=== PATIENT | female | born 1960 | race Two or more races ===

== ENCOUNTER 2017-08-23 12:48 | Emergency (ER) | payer OTHER ==
[~2017-08-23] VITALS: Ht 157.5 cm; Wt 56.7 kg
[~2017-08-23 12:48] MED LIST: CENTRUM TABLET1 TAB; CLONAZEPAM0.5 MG; COZAAR50 MG; DIOVAN40 MG; IBUPROFEN800 MG; LISINOPRIL20 MG; LOSARTAN POTASS50 MG; NITROGLYCERIN0.4 MG; NORVASC10 MG; PLAVIX75 MG; PREDNISONE10 MG; TENORMIN25 MG; XANAX XR2 MG; XANAX0.25 MG; [UNRECOGNIZED DRUG - OTHER]
== END 2017-08-23 21:26 | disposition home or self-care (01) ==
LOC: ER 12:48
DX: J45.998 Other asthma (principal)

== ENCOUNTER → 2017-09-20 | Outpatient (CLI) | payer OTHER | END | disposition home or self-care (01) | LOC: NUCLEAR 11:21 | DX: I10 Essential (primary) hypertension (principal) ==

== ENCOUNTER 2017-09-22 13:51 | Outpatient (CLI) | payer OTHER | END 2017-09-22 13:54 | disposition home or self-care (01) | LOC: RAD 13:51 | DX: M50.13 Cervical disc disorder with radiculopathy, cervicothoracic region (principal); M50.121 Cervical disc disorder at C4-C5 level with radiculopathy ==

== ENCOUNTER 2017-12-15 12:52 | Outpatient (CLI) | payer OTHER | END 2017-12-15 12:58 | disposition home or self-care (01) | LOC: SONOGRAMA 12:52 | DX: E07.9 Disorder of thyroid, unspecified (principal) ==

== ENCOUNTER 2018-01-24 14:21 | Outpatient (CLI) | payer OTHER | END 2018-01-24 14:34 | disposition home or self-care (01) | LOC: SONOGRAMA 14:21 | DX: N76.0 Acute vaginitis (principal) ==

== ENCOUNTER 2018-02-14 12:05 | Outpatient (CLI) | payer OTHER | END 2018-02-14 12:24 | disposition home or self-care (01) | LOC: SONOGRAMA 12:05 | DX: I10 Essential (primary) hypertension (principal); I25.10 Atherosclerotic heart disease of native coronary artery without angina pectoris; K74.60 Unspecified cirrhosis of liver; B18.2 Chronic viral hepatitis C ==

== ENCOUNTER 2018-02-20 08:55 | Outpatient (CLI) | payer OTHER | END 2018-02-20 09:07 | disposition home or self-care (01) | LOC: LAB 08:55 | DX: K74.60 Unspecified cirrhosis of liver (principal); B18.2 Chronic viral hepatitis C ==

== ENCOUNTER → 2018-04-27 | Emergency (ER) | payer OTHER ==
[~2018-04-27] VITALS: Ht 157.5 cm; Wt 54.4 kg
== END | disposition home or self-care (01) ==
LOC: ER 11:37 → CPU-OBS 11:40 → ER 11:40
DX: R07.89 Other chest pain (principal)
CPT/HCPCS: 93005; G0378; G0379

== ENCOUNTER → 2018-06-20 | Outpatient (CLI) | payer OTHER | END | disposition home or self-care (01) | LOC: MAMO-SONO 10:45 → SONOGRAMA 11:20 | DX: E03.8 Other specified hypothyroidism (principal); B18.2 Chronic viral hepatitis C ==

== ENCOUNTER 2018-07-31 12:20 | Outpatient (CLI) | payer OTHER | END 2018-08-01 14:44 | disposition home or self-care (01) | LOC: NUCLEAR 12:20 | DX: I10 Essential (primary) hypertension (principal); I73.9 Peripheral vascular disease, unspecified ==

== ENCOUNTER 2018-10-11 14:10 | Emergency (ER) | payer OTHER ==
[~2018-10-11] VITALS: Ht 157.5 cm; Wt 56.7 kg
[2018-10-11] MEDS ORDERED: SYNTHROID50 MCG (14:28)
[2018-10-12] MEDS ORDERED: ORPHENADRINE C100 GM PO (07:06)
== END 2018-10-12 07:40 ==
LOC: ER 14:10
DX: I16.0 Hypertensive urgency (principal); I10 Essential (primary) hypertension; R07.89 Other chest pain; R50.9 Fever, unspecified

== ENCOUNTER → 2019-05-22 | Outpatient (CLI) | payer OTHER ==
[~2019-05-22] MED LIST changes: +ORPHENADRINE C100 GM PO; +SYNTHROID50 MCG
== END | disposition home or self-care (01) ==
LOC: NUCLEAR 07-31 15:00 → SONOGRAMA 11:25
DX: R10.0 Acute abdomen (principal)

== ENCOUNTER 2019-09-25 14:51 | Outpatient (CLI) | payer OTHER | END 2019-09-25 14:58 | disposition home or self-care (01) | LOC: MAMO-SONO 14:51 | DX: Z12.39 Encounter for other screening for malignant neoplasm of breast (principal); N63.10 Unspecified lump in the right breast, unspecified quadrant; N63.20 Unspecified lump in the left breast, unspecified quadrant ==

== ENCOUNTER 2019-10-25 10:37 | Outpatient (CLI) | payer OTHER | END 2019-10-25 10:42 | disposition home or self-care (01) | LOC: TOM 10:37 | DX: R10.10 Upper abdominal pain, unspecified (principal) ==

== ENCOUNTER 2020-08-18 14:51 | Outpatient (CLI) | payer OTHER | END 2020-08-18 15:06 | disposition HB | LOC: RAD 14:51 | PROVIDERS: ATTEND Orthopaedic Surgery | DX: M25.811 Other specified joint disorders, right shoulder (principal); M25.511 Pain in right shoulder; M75.101 Unspecified rotator cuff tear or rupture of right shoulder, not specified as traumatic; M79.601 Pain in right arm; M54.2 Cervicalgia ==

== ENCOUNTER 2020-09-03 13:59 | Outpatient (CLI) | payer OTHER | END 2020-09-03 14:10 | disposition home or self-care (01) | LOC: NUCLEAR 13:59 | PROVIDERS: ATTEND Orthopaedic Surgery | DX: M81.0 Age-related osteoporosis without current pathological fracture (principal) ==

== ENCOUNTER 2020-09-30 15:27 | Outpatient (CLI) | payer OTHER | END 2020-09-30 15:37 | disposition HB | LOC: MAMO-SONO 15:27 | PROVIDERS: ATTEND Surgery | DX: Z12.31 Encounter for screening mammogram for malignant neoplasm of breast (principal); N60.11 Diffuse cystic mastopathy of right breast; N60.12 Diffuse cystic mastopathy of left breast; N64.59 Other signs and symptoms in breast ==

== ENCOUNTER 2020-10-22 14:43 | Outpatient (CLI) | payer OTHER | END 2020-10-22 15:33 | disposition home or self-care (01) | LOC: SONOGRAMA 14:43 | PROVIDERS: ATTEND Orthopaedic Surgery | DX: R10.31 Right lower quadrant pain (principal); R10.32 Left lower quadrant pain ==

== ENCOUNTER 2021-11-13 15:49 | Outpatient (CLI) | payer OTHER | END 2021-11-13 15:56 | disposition home or self-care (01) | LOC: RAD 15:49 | PROVIDERS: ATTEND Physical Medicine & Rehabilitation | DX: M25.511 Pain in right shoulder (principal) ==

== ENCOUNTER 2021-11-19 13:50 | Outpatient (CLI) | payer OTHER | END 2021-11-19 13:57 | disposition home or self-care (01) | LOC: SONOGRAMA 13:50 | PROVIDERS: ATTEND Physical Medicine & Rehabilitation | DX: M25.511 Pain in right shoulder (principal) ==

== ENCOUNTER 2021-11-23 15:04 | Outpatient (CLI) | payer OTHER | END 2021-11-23 15:13 | disposition home or self-care (01) | LOC: MAMO-SONO 15:04 | PROVIDERS: ATTEND Family Medicine | DX: Z12.31 Encounter for screening mammogram for malignant neoplasm of breast (principal) ==

== ENCOUNTER 2021-12-21 16:16 | Emergency (ER) | payer OTHER ==
[~2021-12-21] VITALS: Ht 157.5 cm; Wt 61.2 kg
[2021-12-26] MEDS ORDERED: CLONAZEPAM0.5 MG PO (14:08)
== END 2021-12-21 19:19 | disposition home or self-care (01) ==
LOC: ER 16:16
DX: S00.83XA Contusion of other part of head, initial encounter (principal); X58.XXXA Exposure to other specified factors, initial encounter; Y93.89 Activity, other specified; Y92.89 Other specified places as the place of occurrence of the external cause; Y99.9 Unspecified external cause status; Z88.6 Allergy status to analgesic agent; Z88.0 Allergy status to penicillin; Z72.0 Tobacco use; I10 Essential (primary) hypertension

== ENCOUNTER → 2021-12-26 | Emergency (ER) | payer OTHER ==
[~2021-12-26] VITALS: Ht 157.5 cm; Wt 61.2 kg
[~2021-12-26] MED LIST changes: +CLONAZEPAM0.5 MG PO
== END | disposition home or self-care (01) ==
LOC: ER 13:36
DX: Z53.29 Procedure and treatment not carried out because of patient's decision for other reasons (principal); Z88.6 Allergy status to analgesic agent; Z88.0 Allergy status to penicillin; I10 Essential (primary) hypertension; E03.9 Hypothyroidism, unspecified; S00.12XA Contusion of left eyelid and periocular area, initial encounter

== ENCOUNTER 2022-01-23 17:11 | Emergency (ER) | payer OTHER ==
[~2022-01-23] VITALS: Ht 165.1 cm; Wt 59.0 kg
== END 2022-01-23 22:32 | disposition home or self-care (01) ==
LOC: ER 17:11
DX: K52.9 Noninfective gastroenteritis and colitis, unspecified (principal); E86.0 Dehydration; Z88.0 Allergy status to penicillin; Z88.2 Allergy status to sulfonamides; Z88.6 Allergy status to analgesic agent; I10 Essential (primary) hypertension; I49.9 Cardiac arrhythmia, unspecified; F17.200 Nicotine dependence, unspecified, uncomplicated

== ENCOUNTER → 2022-03-11 | Outpatient (CLI) | payer OTHER | END | disposition home or self-care (01) | LOC: SONOGRAMA 12:51 | PROVIDERS: ATTEND Family Medicine | DX: R10.10 Upper abdominal pain, unspecified (principal) ==

== ENCOUNTER 2022-03-16 11:58 | Outpatient (CLI) | payer OTHER | END 2022-03-16 13:51 | disposition home or self-care (01) | LOC: NUCLEAR 11:58 | PROVIDERS: ATTEND Family Medicine | DX: I25.10 Atherosclerotic heart disease of native coronary artery without angina pectoris (principal); I10 Essential (primary) hypertension ==

== ENCOUNTER 2022-05-28 11:34 | Outpatient (CLI) | payer OTHER | END 2022-05-28 11:38 | disposition home or self-care (01) | LOC: NUCLEAR 11:34 | PROVIDERS: ATTEND Family Medicine | DX: I11.9 Hypertensive heart disease without heart failure (principal); Z88.0 Allergy status to penicillin; Z88.2 Allergy status to sulfonamides; Z88.6 Allergy status to analgesic agent ==

== ENCOUNTER 2022-06-08 12:02 | Emergency (ER) | payer OTHER ==
[~2022-06-08] VITALS: Ht 157.5 cm; Wt 56.7 kg
== END 2022-06-08 16:07 | disposition home or self-care (01) ==
LOC: ER 12:02
DX: M54.89 Other dorsalgia (principal); M25.572 Pain in left ankle and joints of left foot; Z88.0 Allergy status to penicillin; Z88.2 Allergy status to sulfonamides; Z88.6 Allergy status to analgesic agent

== ENCOUNTER 2022-11-30 18:26 | Emergency (ER) | payer OTHER ==
[~2022-11-30] VITALS: Ht 152.4 cm; Wt 61.2 kg
[2022-11-30] MEDS ORDERED: TOPROL XL50 M1 PO (18:41)
[2022-11-30] MEDS ORDERED: PERCOCET 5-3251 EACH PO (23:00)
== END 2022-11-30 23:34 | disposition home or self-care (01) ==
LOC: ER 18:26
DX: M77.31 Calcaneal spur, right foot (principal); E03.9 Hypothyroidism, unspecified; I10 Essential (primary) hypertension; Z87.898 Personal history of other specified conditions; Z88.6 Allergy status to analgesic agent; Z88.0 Allergy status to penicillin

== ENCOUNTER 2023-04-27 13:48 | Outpatient (CLI) | payer OTHER ==
[~2023-04-27 13:48] MED LIST changes: +PERCOCET 5-3251 EACH PO; +TOPROL XL50 M1 PO
== END 2023-04-27 14:20 | disposition home or self-care (01) ==
LOC: MAMO-SONO 13:48
PROVIDERS: ATTEND Family Medicine
DX: Z12.31 Encounter for screening mammogram for malignant neoplasm of breast (principal); N63.0 Unspecified lump in unspecified breast; N60.29 Fibroadenosis of unspecified breast

== ENCOUNTER 2023-05-06 13:43 | Outpatient (CLI) | payer OTHER | END 2023-05-06 13:46 | disposition home or self-care (01) | LOC: NUCLEAR 13:43 | PROVIDERS: ATTEND Family Medicine | DX: Z13.820 Encounter for screening for osteoporosis (principal) ==

== ENCOUNTER 2023-06-09 12:34 | Outpatient (CLI) | payer OTHER | END 2023-06-09 12:36 | disposition home or self-care (01) | LOC: SONOGRAMA 12:34 | PROVIDERS: ATTEND Family Medicine | DX: R10.84 Generalized abdominal pain (principal) ==

== ENCOUNTER → 2024-04-16 | Outpatient (CLI) | payer OTHER | END | disposition home or self-care (01) | LOC: RAD 15:49 | PROVIDERS: ATTEND Family Medicine | DX: M54.17 Radiculopathy, lumbosacral region (principal) ==

== ENCOUNTER 2024-04-27 09:49 | Outpatient (CLI) | payer OTHER | END 2024-04-27 09:53 | disposition home or self-care (01) | LOC: SONOGRAMA 09:49 | PROVIDERS: ATTEND Family Medicine | DX: R10.9 Unspecified abdominal pain (principal) ==

== ENCOUNTER 2024-08-07 10:10 | Outpatient (CLI) | payer OTHER | END 2024-08-07 10:20 | disposition home or self-care (01) | LOC: TOM 10:10 | PROVIDERS: ATTEND Family Medicine | DX: R10.10 Upper abdominal pain, unspecified (principal) ==

== ENCOUNTER 2024-10-17 14:10 | Outpatient (CLI) | payer OTHER | END 2024-10-17 14:16 | disposition home or self-care (01) | LOC: SONOGRAMA 14:10 | PROVIDERS: ATTEND Family Medicine | DX: E03.9 Hypothyroidism, unspecified (principal); E04.2 Nontoxic multinodular goiter ==

== ENCOUNTER 2025-07-02 14:18 | Outpatient (CLI) | payer OTHER | END 2025-07-02 14:28 | disposition home or self-care (01) | LOC: MAMO-SONO 14:18 | PROVIDERS: ATTEND Family Medicine | DX: R10.10 Upper abdominal pain, unspecified (principal); Z12.31 Encounter for screening mammogram for malignant neoplasm of breast ==

== ENCOUNTER 2025-07-30 15:32 | Inpatient (IN) | payer OTHER ==
[~2025-07-30] VITALS: Ht 157.5 cm; Wt 68.0 kg
--- NOTE | 2025-07-30 15:46 | NUR ---
SE RECIBE PTE ALERTA Y ORIENTADA X3 EN AMBULANCIA REFIRIENDO VENIR POR RETENCION DE LIQUIDOS. REFIERE SER PTE DE DR RONAK BRUNER. SE MIDEN S/V Y SE UBICA EN PAULINA CON BARANDAS ELEVADAS Y NIVEL MAS BAJO DE LA MISMA,
[2025-07-30] MEDS ORDERED: PANTOPRAZOLE SODIUM 40 MG/VIAL VIAL IV ONE (16:15)
[2025-07-30] MEDS ORDERED: ONDANSETRON HCL 4 MG in 0.9 % SODIUM CHLORIDE 50 ML IV ONE (16:15)
[2025-07-30] MEDS ORDERED: 0.9 % SODIUM CHLORIDE 1,000 ML IV ONE (16:15)
[2025-07-30] MEDS ORDERED: ONDANSETRON HCL 2 MG/ML VIAL ONE (17:35)
[2025-07-30 18:15] LABS: BASO % 0.5 % (0.1-1.2); EOS # 0.08 (0.04-0.54); EOS % 2.2 % (0.7-7.0); LYMPH # 2.05 (1.18-3.74); LYMPH % 55.6 % (19.3-53.1); MEAN PLATELET VOLUME 12.40 fl (9.4-12.4); MONO # 0.54 (0.24-0.82); NEUT # 1.00 (1.56-6.13); NEUT % 27.1 % (34.0-71.1); RED CELL DISTRIBUTION WIDTH 18.5 % (11.6-14.4)
[2025-07-30 18:44] LABS: ALT/SGPT 51.0 U/L (12-78); AST/SGOT 93.0 U/L (15-37); BILIRUBIN TOTAL 0.72 mg/dL (0.3-1.2); BUN CREA RATIO 15.0 (7.0-25.0); CREATININE SERUM 0.62 mg/dL (0.55-1.02); GFR 97.22; GLOBULINA 5.0 G/DL (2.4-3.5); GLUCOSE FASTING 89.0 mg/dL (65-100); INR 1.33; OSMOLALITY SERUM 283.0 MOSM/KG (275-295)
--- NOTE | 2025-07-30 19:06 | NUR ---
PACIETNE ORIENTADA POR ALENA GALVAN SOBRE [place] MEDICO ORDENADO EL CUAL INDICA ENTENDER. SE COLECTAN MUESTRAS DE LABORATORIOS Y SE CANALIZA PACIENTE BAJO MEDIDAS ASEPTICAS. SE ENTREGA U/A/ SE ADMINISTRA MEDICAMENTO NATALIYA ORDEN MEDICA. PACIENTE PENDIENTE A CT.
[2025-07-30 20:03] LABS: MONO % 14.6 % (4.7-12.5)
[2025-07-30 20:05] LABS: LYMPHOCYTE MAN 44.0 %; NEUTROPHILS MAN 32.0 %
[2025-07-30 20:06] LABS: EOSINOPHIL MAN 2.0 %; MONOCYTE MAN 17.0 %
[2025-07-30 20:15] LABS: URINE BILIRRUBIN Negative (NEGATIVE); URINE BLOOD Trace; URINE COLOR Yellow; URINE GLUCOSE Negative (NEGATIVE); URINE KETONE Negative (NEGATIVE); URINE LEUKOCYTE Negative; URINE NITRATE Negative; URINE PROTEIN Negative (NEGATIVE); URINE UROBILINOGEN 0.2 E.U./dl
[2025-07-30 20:19] LABS: URINE BACTERIA 242.3 uL (0.0-1933); URINE EPITHELIAL CELLS 4.4 uL (0.0-38.8); URINE WBC 7.8 uL (0.0-23.2)
[2025-07-30 20:23] LABS: URINE APPEARANCE CLEAR; URINE CAST 0.00 uL (0.0-1.40); URINE RBC 0.2 uL (0.0-20.8)
--- NOTE | 2025-07-31 03:42 | NUR ---
PACIENTE REEVALUADO POR QUIEN ORDENA NUEVO TRATAMIENTO MEDICO, SE LE ORIENTA A PACIENTE SOBRE EL MISMO Y REFIERE ENTENDER, PERMISO DE TRANSFUCION PREVIAMENTE TOMADO Y ADJUNTADO EN RECORD DE PACIENTE. SE LE DAVID DOS TUBOS PILOTOS PARA REQUISION DE 10 UNIDADES DE PLAQUETAS. SE LLEVAN A LABORATORIO Y PERSONAL DE [place] DE [place] REFIERE QUE PACIENTE NO TIENE RECORD PREVIO VIGENTE, SE OLIVIA TERCER TUBO KATE Y SE IGNACIO EN LABORATORIO. SE MANTIENE BAJO OBSRVACION POR CAMBIOS EN ABRAMS CONDICION. INFORMACION DE PACIENTE (NOMBRE Y FECHA DE NACIMIENTO) FUE CORROBORADA CON LA MISMA.
[2025-07-31] MEDS ORDERED: ACETAMINOPHEN 500 MG GEL..CAP PO ONE (09:08)
[2025-07-31] MEDS ORDERED: ACETAMINOPHEN 500 MG GEL..CAP PO STA (09:09)
[2025-07-31 14:23] VITALS: BP 130/90
[2025-07-31] MEDS ORDERED: INSULIN LISPRO 1,000 UNIT/10 ML UNITS SUBCUTANEO PRN (15:30)
[2025-07-31] MEDS ORDERED: DEXTROSE 50 % IN WATER 0.5 G/ML DISP.SYRIN IV PRN (15:30)
[2025-07-31 18:32] VITALS: BP 138/83; O2SAT 97
[2025-08-01 01:50] VITALS: BP 131/71; O2SAT 99
[2025-08-01 06:28] LABS: INR 1.43
[2025-08-01 06:56] LABS: BUN CREA RATIO 19.0 (7.0-25.0); CREATININE SERUM 0.53 mg/dL (0.55-1.02); GFR 116.51; GLUCOSE FASTING 84.0 mg/dL (65-100); OSMOLALITY SERUM 281.0 MOSM/KG (275-295)
[2025-08-01 09:17] VITALS: BP 112/72
[2025-08-01] MEDS ORDERED: MAGNESIUM SULFATE IN WATER 50 ML IV NR (11:00)
[2025-08-01] MEDS ORDERED: SPIRONOLACTONE 50 MG TABLET PO NR (12:00)
[2025-08-01] MEDS ORDERED: POTASSIUM CHLORIDE 10 MEQ CAPSULE PO SCH (12:00)
[2025-08-01 12:01] LABS: BASO % 0.3 % (0.1-1.2); EOS # 0.04 (0.04-0.54); EOS % 1.3 % (0.7-7.0); LYMPH # 1.36 (1.18-3.74); LYMPH % 44.7 % (19.3-53.1); MEAN PLATELET VOLUME 12.30 fl (9.4-12.4); MONO # 0.54 (0.24-0.82); NEUT # 1.08 (1.56-6.13); NEUT % 35.6 % (34.0-71.1); RED CELL DISTRIBUTION WIDTH 18.6 % (11.6-14.4)
[2025-08-01 12:09] LABS: MONO % 17.8 % (4.7-12.5)
[2025-08-01] MEDS ORDERED: CLONAZEPAM 0.5 MG TABLET PO SCH (15:32)
[2025-08-01 21:17] VITALS: BP 125/65
[2025-08-02 03:38] VITALS: BP 136/72; O2SAT 100
[2025-08-02 06:52] LABS: BUN CREA RATIO 21.0 (7.0-25.0); CREATININE SERUM 0.56 mg/dL (0.55-1.02); GFR 109.34; GLUCOSE FASTING 98.0 mg/dL (65-100); OSMOLALITY SERUM 285.0 MOSM/KG (275-295)
[2025-08-02 08:25] VITALS: BP 109/68; O2SAT 99
[2025-08-02] MEDS ORDERED: SPIRONOLACTONE 50 MG TABLET PO SCH (09:00)
[2025-08-02 16:00] LABS: BASO % 0.3 % (0.1-1.2); EOS # 0.01 (0.04-0.54); EOS % 0.3 % (0.7-7.0); LYMPH # 1.22 (1.18-3.74); LYMPH % 34.1 % (19.3-53.1); MEAN PLATELET VOLUME 11.90 fl (9.4-12.4); MONO # 0.58 (0.24-0.82); NEUT # 1.76 (1.56-6.13); NEUT % 49.1 % (34.0-71.1); RED CELL DISTRIBUTION WIDTH 18.7 % (11.6-14.4)
[2025-08-02 16:05] LABS: MONO % 16.2 % (4.7-12.5)
[2025-08-02 20:41] VITALS: BP 110/72
[2025-08-03] VITALS: BP 144/78; O2SAT 100
[2025-08-03 08:50] VITALS: BP 146/75; O2SAT 99
== END 2025-08-03 15:11 | disposition home or self-care (01) | DRG 813 ==
LOC: ER 15:32 → SEC-K 07-31 15:25 → MEDI 07-31 15:25
PROVIDERS: General Practice; Internal Medicine; ADMIT Internal Medicine; ATTEND Internal Medicine
PROC: BW21ZZZ Computerized Tomography (CT Scan) of Abdomen and Pelvis (ICD-10-PCS; principal; 2025-07-30)
PROC: 30233R1 Transfusion of Nonautologous Platelets into Peripheral Vein, Percutaneous Approach (ICD-10-PCS; 2025-07-31)
PROC: B020ZZZ Computerized Tomography (CT Scan) of Brain (ICD-10-PCS; 2025-08-02)
DX: D69.6 Thrombocytopenia, unspecified (principal); R18.8 Other ascites